=== PATIENT | male | born 1965 | race African-American/Black ===

== ENCOUNTER 2017-08-23 15:58 | Emergency (ER) | payer BC ==
[~2017-08-23] VITALS: Ht 190.5 cm; Wt 108.0 kg
[2017-08-23] MEDS ORDERED: PROAIR HFA8.5 GM INH (16:24)
[2017-08-23] MEDS ORDERED: NORCO 5-325 TA1 EACH PO (16:39)
== END 2017-08-23 16:56 | disposition home or self-care (01) ==
LOC: ER 15:58
DX: M54.5 Low back pain (principal)